=== PATIENT | male | born 1990 | race Hispanic/Latino ===

== ENCOUNTER 2021-03-06 11:28 | Emergency (ER) | payer SELFPAY ==
[2021-03-06 11:35] VITALS: BP 145/83; PULSE 82; RESP 20; TEMP 36.1; O2SAT 96
--- NOTE | 2021-03-06 11:50 | ED.GENADULT ---
HPI - General Adult General Chief complaint: Unspecified Stated complaint: out of metformin and insulin Time Seen by Provider: 03/06/21 11:34 Source: patient Mode of arrival: ambulatory Limitations: no limitations History of Present Illness HPI narrative: This is a 30 year old male with history of DM who presents for prescription refills. Patient travels alot for work. He came here 2 weeks ago and he will be here for a few months. He ran out of his metformin and insulin 1 week ago. He reports he has been having increased thirst in urination. He denies nausea and vomiting. Related Data Allergies Allergy/AdvReac Type Severity Reaction Status Date / Time No Known Allergies Allergy Verified 03/06/21 11:38 Review of Systems Review of Systems: All systems reviewed & are unremarkable except as noted in HPI and below Constitutional: Constitutional: Denies body ache(s), Denies chills and Reports daytime sleepiness Cardiovascular: Cardiovascular: Denies chest pain and Denies chest pain at rest Respiratory: Respiratory: Denies cough, Denies dyspnea and Denies dyspnea on exertion Gastrointestinal: Gastrointestinal: Denies abdominal pain Endocrine: Endocrine: Reports polydipsia and Reports polyuria PMFSH Past Medical History Medical History (Updated 03/06/21 @ 13:40 by Harriet Sinha MD) Diabetes mellitus Surgical History Surgical History (Updated 03/06/21 @ 11:51 by Harriet Sinha MD) No pertinent past surgical history Social History Social History (Updated 03/06/21 @ 11:51 by Harriet Sinha MD) Smoking status: Current some day smoker Substance use type: marijuana Gender identity (if verbalized by the patient): Male Exam Narrative: Exam Narrative: GENERAL: well-nourished, and in no acute distress. HEAD: Normocephalic, atraumatic EYES: PERRLA and EOMI, conjunctiva clear without discharge EARS: TM's clear bilaterally without erythema or dullness THROAT:Mucous membranes moist, Oropharynx normal without erythema, exudate, peritonsillar swelling or fluctuance NECK: Supple, without lymphadenopathy or mass RESPIRATORY: No respiratory distress, Airway patent, Respirations non-labored, Clear to auscultation without rales, rhonchi or wheeze HEART: Regular rate and rhythm. No murmur heard. Normal peripheral pulses. ABDOMEN: Soft, nontender, nondistended, normal active bowel sounds. No masses. No rebound or guarding, No organomegaly. EXTREMITIES: No edema, normal strength with full range of motion. SKIN: Warm, dry, normal color without rash NEURO: Alert and oriented x3. CN 2-12 grossly intact. No focal deficits. PSYCH: Normal mood and affect. Course Reevaluation(s) Reevaluation #1: Patient does not have DKA. He will be prescribed his meds but he understands he needs to follow up with PCP. Date: 03/06/21 Time: 13:38 Vital Signs Vital signs: Vital Signs Temperature 97.0 F L 03/06/21 11:35 Pulse Rate 82 03/06/21 11:35 Respiratory Rate 20 03/06/21 11:35 Blood Pressure 145/83 H 03/06/21 11:35 Pulse Oximetry 96 03/06/21 11:35 Temperature 97.0 F L 03/06/21 11:35 Pulse Rate 88 03/06/21 13:55 Respiratory Rate 17 03/06/21 13:55 Blood Pressure 142/86 H 03/06/21 13:55 Pulse Oximetry 97 03/06/21 13:55 Medical Decision Making Vital Signs Vital Signs: Vital Signs Temperature 97.0 F L 03/06/21 11:35 Pulse Rate 82 03/06/21 11:35 Respiratory Rate 20 03/06/21 11:35 Blood Pressure 145/83 H 03/06/21 11:35 Pulse Oximetry 96 03/06/21 11:35 Temperature 97.0 F L 03/06/21 11:35 Pulse Rate 88 03/06/21 13:55 Respiratory Rate 17 03/06/21 13:55 Blood Pressure 142/86 H 03/06/21 13:55 Pulse Oximetry 97 03/06/21 13:55 Lab Data Lab results reviewed: Yes I reviewed the patient's lab results. Result diagrams: 03/06/21 12:16 03/06/21 12:16 Labs: Lab Results 03/06/21 03/06/21 03/06/21 Range/Units 12:16 1
[2021-03-06 12:23] LABS: Glucose Point of Care 306 (65-105)
[2021-03-06 12:27] LABS: Basophils Absolute Auto 0.1 K/mm3 (0.0-0.1); Basophils Percent Auto 0.9 % (0.2-1.2); Eosinophils Absolute Auto 0.4 K/mm3 (0-0.3); Eosinophils Percent Auto 3.1 % (0-4.4); Hematocrit 48.8 % (42.0-52.0); Hemoglobin 16.3 g/dL (14.0-18.0); Immature Granulocyte Absolute 0.11 K/mm3 (0.00-0.031); Immature Granulocyte Percent A 0.9 % (0-0.5); Lymphocytes Absolute Auto 3.64 K/mm3 (0.9-3.2); Lymphocytes Percent Auto 30.5 % (18.3-44.2); Mean Corpuscular HGB Conc 33.4 g/dl (32-36); Mean Corpuscular Hemoglobin 29.6 pg (26-34); Mean Corpuscular Volume 88.7 fl (80-100); Mean Platelet Volume 9.8 fl (7.4-10.4); Monocytes Percent Auto 8.2 % (2.6-8.5); Neutrophils Absolute Auto 6.7 K/mm3 (1.3-6.7); Neutrophils Percent Auto 56.4 % (45.5-73.1); Platelet Count Result 360 k/mm3 (150-375); Red Cell Distribution Width 13.2 % (11.5-14.5); White Blood Count 11.9 K/mm3 (4.5-10.0)
[2021-03-06 12:33] LABS: Add Urine Microscopic? YES; Appearance Urine Clear (Clear); Bilirubin Urine Negative (Negative); Blood Urine Negative (Negative); Color Urine Yellow (Yellow); Glucose Urine UA 3+ mg/dL (Negative); Ketones Urine Negative (Negative); Leukocyte Esterase Ur Negative LEU/UL (Negative); Nitrate Urine Negative (Negative); Protein Urine 2+ mg/dL (Negative); RBC Urine 0-2 /hpf (0-2); Squamous Epithelial Cell Urine Rare /hpf (Few); WBC Urine 0-3 /hpf
[2021-03-06 12:38] LABS: Specific Grav Ur 1.031 (1.001-1.035)
[2021-03-06 13:28] LABS: Alanine Aminotransferase 74 U/L (4-50); Albumin Level 4.7 g/dL (3.5-5.1); Alkaline Phosphatase 202 U/L (38-126); Anion Gap 8 mmol/L (8-16); Aspartate Amino Transferase 45 U/L (17-59); Bilirubin,Total 0.7 mg/dL (0.2-1.3); Blood Urea Nitrogen 13 mg/dL (9-20); Calcium 9.6 mg/dL (8.4-10.2); Carbon Dioxide 30 mmol/L (22-30); Chloride 99 mmol/L (98-107); Estimated CRCL calculation 174 ml/min; Estimated Glomerular Filt Rate > 60; Glucose 295 mg/dL (75-110); Potassium 4.5 mmol/L (3.4-5.0); Sodium 137 mmol/L (137-145)
--- NOTE | 2021-03-06 13:46 | PCCCNOTE ---
Care Coordination spoke to pt and friend at bedside about his medications and needing a PMD. Gave pt a GoodRx card which he states he uses already and is able to afford medications using the card. His friend already has [employer] [employer]. Encouraged pt to get himself a provider so his medications can be refilled and he has someone to manage his disease. Pt states he move frequently but is in area for 6 months at a time and prefers Dr. lancaster in [facility].
[2021-03-06] MEDS: metFORMIN HCL 500 MG TABLET 1000 MG PO (13:54)
[2021-03-06 13:55] VITALS: BP 142/86; PULSE 88; RESP 17; O2SAT 97
== END 2021-03-06 13:56 | disposition home or self-care (01) ==
PROVIDERS: Emergency Provider General Practice
DX: E11.65 Type 2 diabetes mellitus with hyperglycemia (principal); Z79.4 Long term (current) use of insulin; F17.210 Nicotine dependence, cigarettes, uncomplicated
CPT/HCPCS: 36415; 80053; 81001; 82948; 85025; 99283; A9270